=== PATIENT | male | born 1975 | race Caucasian/White ===

== ENCOUNTER 2016-06-29 16:59 | Emergency (ER) | payer BC ==
[~2016-06-29] VITALS: Ht 188 cm; Wt 68.0 kg
[2016-06-29 17:02] VITALS: BP 107/75
--- NOTE | 2016-06-29 17:25 | PHYS DOC ---
Past Medical History Past Medical History: Other Additional Past Medical Histor: scoliosis Past Surgical History: Other Additional Past Surgical Histo: R 2nd finger ligament repair Alcohol Use: None Drug Use: Marijuana Adult General Chief Complaint Chief Complaint: LACERATION/AVULSION HPI HPI Patient is a 41 year old male who presents with left index finger laceration after cutting himself accidentally with a knife. Review of Systems Review of Systems Constitutional: Denies fever or chills [] Eyes: Denies change in visual acuity, redness, or eye pain [] Musculoskeletal: Denies back pain or joint pain [] Integument: Left index finger laceration Neurologic: Denies headache, focal weakness or sensory changes [] Endocrine: Denies polyuria or polydipsia [] Current Medications Current Medications Current Medications Medications (Trade) Dose Ordered Sig/Eagle Start Time Stop Time Status Last Admin Dose Admin Lidocaine/Sodium Bicarbonate (Buffered Lidocaine 1%) 20 ml 1X ONCE 06/29/16 17:30 06/29/16 17:31 DC 06/29/16 17:17 20 ML Allergies Allergies Allergies Coded Allergies Type Severity Reaction Last Updated Verified No Known Drug Allergies 06/29/16 No Physical Exam Physical Exam Constitutional: Well developed, well nourished, no acute distress, non-toxic appearance. [] HENT: Normocephalic, atraumatic, bilateral external ears normal, oropharynx moist, no oral exudates, nose normal. [] Skin: Left index finger proximal end dorsal aspect with a laceration approximately 3 cm long. there is no obvious tendon involvement or foreign body. Adequate flexion and extension of the left index finger at the MIP PIP and DIP joints. +2 left radial pulse. Adequate radial sensation to the left index finger. Cap refill less than 2 seconds the left index finger. Back: No tenderness, no CVA tenderness. [] Extremities: No tenderness, no cyanosis, no clubbing, ROM intact, no edema. [] Neurologic: Alert and oriented X 3, normal motor function, normal sensory function, no focal deficits noted. [] Psychologic: Affect normal, judgement normal, mood normal. [] Current Patient Data Vital Signs Vital Signs Date Time Temp Pulse Resp B/P Pulse Ox O2 Delivery O2 Flow Rate FiO2 06/29/16 17:02 97.7 88 18 97 Room Air 97.7 EKG EKG [] Radiology/Procedures Radiology/Procedures Indication: Left index finger laceration Procedure: The patient was placed in the appropriate position and anesthesia around the laceration was 1% buffered lidocaine. The area was then 100 ML of NS and Betadine. The laceration was closed with 6 interrupted sutures using 5. 0 Ethilon. The wound area was then dressed with Band-Aid Total repaired wound length: Approximately 3 cm long Other Items: none The patient tolerated the procedure well Complications: none Course & Med Decision Making Course & Med Decision Making Pertinent Labs and Imaging studies reviewed. (See chart for details) Patient has left index finger laceration, tetanus is up-to-date. Left index finger x-rays interpreted by Dr. Wheeler is negative for any acute findings. Patient's laceration was closed as noted in procedures. His tetanus is up-to- date. He was instructed to apply Neosporin to the area and provided return precautions. He is to follow-up with the ED primary care doctor in 7-10 days for suture removal. Dragon Disclaimer Dragon Disclaimer This electronic medical record was generated, in whole or in part, using a voice recognition dictation system. Departure Departure Impression: Primary Impression: Laceration of index finger Disposition: HOME, SELF-CARE Condition: STABLE Patient Instructions: Laceration Care, Adult Additional Instructions: You were seen for laceration of the left index finger. Keep the area clean and dry. Apply Neosporin to the area twice a day. Follow-up with your doctor or the emergency room in 7-10 days for suture removal. Problem Qualifiers Primary Impression: Laceration of index finger Encounter type: initial encounter Qualified Code: S61.218A - Laceration without foreign body of other finger without damage to nail, initial encounter [employer] Jun 29, 2016 17:25
[2016-06-29] MEDS ORDERED: LIDOCAINE 1% / SOD BICARB 8.4% 20 ML VIAL. IJ ONE (17:30)
--- NOTE | 2016-06-30 09:09 | RAD ---
3 view study of the second digit of the left hand Clinical indications: Laceration injury. Findings: No acute fracture or dislocation or osteolytic process is seen. IMPRESSION: No acute fracture.
== END 2016-06-29 17:56 | disposition home or self-care (01) ==
LOC: ER 16:59
DX: S61.211A Laceration without foreign body of left index finger without damage to nail, initial encounter (principal); F12.10 Cannabis abuse, uncomplicated; M41.9 Scoliosis, unspecified; W26.0XXA Contact with knife, initial encounter; Y93.89 Activity, other specified; Y92.89 Other specified places as the place of occurrence of the external cause; Y99.8 Other external cause status
CPT/HCPCS: 12002; 73140; 99284-25

== ENCOUNTER 2017-05-21 19:00 | Emergency (ER) | payer BC ==
[2017-05-21] MEDS: HYDROcodone/APAP 5/325MG 1 TAB TABLET PO (19:49)
== END 2017-05-21 19:51 | disposition home or self-care (01) ==
LOC: ER 19:00
DX: M54.9 Dorsalgia, unspecified (principal); M41.9 Scoliosis, unspecified; F12.10 Cannabis abuse, uncomplicated
CPT/HCPCS: 99283